=== PATIENT | male | born 2000 | race Caucasian/White ===

== ENCOUNTER 2021-03-18 15:33 | Emergency (ER) | payer SELFPAY ==
[2021-03-18 15:35] VITALS: BP 136/82; PULSE 86; RESP 18; TEMP 36.7; O2SAT 99; BMI 25.8
--- NOTE | 2021-03-18 15:43 | XR_ITS ---
PROCEDURE INFORMATION: Exam: XR Left Ankle Exam date and time: 03/18/2021 3:43 PM Age: 20 years old Clinical indication: Injury or trauma; Fall; Blunt trauma; Ankle; Left; Injury date: 03/17/21 TECHNIQUE: Imaging protocol: XR Left ankle. Views: 3 or more views. COMPARISON: No relevant prior studies available. FINDINGS: Bones/joints: No acute bony injury or malalignment in the visualized left ankle. Well corticated ossific densities inferior to the distal fibula. Soft tissues: Mild soft tissue swelling. IMPRESSION: No acute bony injury or malalignment in the visualized left ankle.
--- NOTE | 2021-03-18 16:18 | HMH.EDUTC ---
[facility] [place] Impression: Ankle sp[place] Qualifiers: Encounter type: initial encounter Involved ligament of ankle: unspecified ligament Laterality: left Qualified Code(s): S93.402A - Sprain of unspecified ligament of left ankle, initial encounter Disposition: Home, Self-Care Condition on Discharge: Good Instructions: DI for Ankle Sprain, Ankle Sprain, How to Use a Walking Boot, How to Use Crutches Additional Instructions: *weight bearing as tolerated *RICE, Rest the extremity, Ice 15-20 minutes 3-4 times daily, Compress- wear the mian wrap as discussed as much as possible to help reduce swelling and pain, Elevate the extremity when at rest *Mian wrap is for support and help control swelling, use it except in the shower. Be sure that is not to tight but not to loose either *Elevate when resting *Ibuprofen as directed on package every 6-8 hours as needed for pain an inflammation. If need something more can take Tylenol in between doses of Ibuprofen to help Immediately follow up with your family doctor for new or worsening of symptoms, or no noticeable improvement over the next 3-5 days Referrals: Randy Salcedo MD [Primary Care Provider] - As needed Time of Disposition: 16:23 Medical Decision Making - Catarino Inquiry Pt receiving controlled substance: No Catarino was queried for this patient: No Vital Signs: 03/18/21 15:35 Temperature 98.0 F Temperature Source Oral Pulse Rate [Right Brachial] 86 Respiratory Rate 18 Blood Pressure [Right Arm] 136/82 Blood Pressure Mean [Right Arm] 100 Blood Pressure Source [Right Arm] Automatic Cuff Blood Pressure Position [Right Arm] Sitting 02 Sat by Pulse Oximetry 99 Oxygen Delivery Method Room Air [facility] [place] - General Stated complaint: Poss. broken left ankle Time Seen by Provider: 03/18/21 16:18 Mode of Arrival: Ambulatory Source of Information: Patient Limitations: No Limitations Description of Symptoms (Recalled from Triage Doc. by RN): PATIENT C/O INJURY TO LEFT ANKLE AFTER JUMPING OFF OF PORCH SATURDAY HEENT Symptoms (Recalled from RN notes): No Resp Symptoms (Recalled from RN notes): No Skin Symptoms (Recalled from RN notes): No MS Symptoms (Recalled from RN notes): Yes Functional Status (Recalled from RN notes): WNL - History of Present Illness Provider Complaint: Patient states that he was stepping off the porch a few days ago when he missed the step and rolled his left ankle States that ever since he has been having pain when he moves the foot or tries to walk on it States that today he was still having pain and they are not returning to [place] until Saturday so they came in to get him checked - Related Data Home Medications Medication Instructions Recorded Confirmed ARIPiprazole [Abilify 10mg 10 mg PO DAILY 03/18/21 03/18/21 Tablet] Methylphenidate HCl 72 mg PO DAILY 03/18/21 03/18/21 [Methylphenidate ER] Allergies Allergy/AdvReac Type Severity Reaction Status Date / Time No Known Allergies Allergy Verified 03/18/21 16:08 - Worker's Comp Is this a Worker's Comp case?: No [facility] History - Hepatitis A Screen Drug use history?: No High risk sexual behaviors?: No History of sexually transmitted infection?: No Currently employed?: No Childcare worker?: No Do you have indoor plumbing?: Yes Do you have electricity?: Yes Attestation statement:: This patient has been screened for Hepatitis A risk factors. I have reviewed the patient's past medical history: Yes - Social History Alcohol Intake: never Occupational Status: other ROS Obtained: Yes All systems reviewed & no additional complaints, Yes Systems reviewed as appropriate & no additional complaints - Constitutional Constitutional: Reports system reviewed and no additional complaints, except as docu, Denies body ache, Denies chills, Denies fever(s), Denies headache(s) - ENT Ears, Nose, Mouth, and Throat: Reports system reviewed and no additional complaints, exce
[2021-03-18 16:30] VITALS: BP 136/82; PULSE 86; RESP 18; TEMP 36.7; O2SAT 99
== END 2021-03-18 16:52 | disposition home or self-care (01) ==
PROVIDERS: Emergency Provider Nurse Practitioner; PCP Internal Medicine Adolescent Medicine
DX: S93.402A Sprain of unspecified ligament of left ankle, initial encounter (principal); X50.1XXA Overexertion from prolonged static or awkward postures, initial encounter; Y92.019 Unspecified place in single-family (private) house as the place of occurrence of the external cause
CPT/HCPCS: 29515; 73610; 99202; G0463